=== PATIENT | male | born 1985 | race Caucasian/White ===

== ENCOUNTER 2018-02-20 12:21 | Emergency (ER) | payer SELFPAY ==
--- NOTE | 2018-02-20 12:47 | EDM.PDOCBH ---
ED HPI GENERAL MEDICAL PROBLEM - General Chief Complaint: Drug or Alcohol Abuse Stated Complaint: PSYCH EVAL Time Seen by Provider: 02/20/18 12:40 Source of Information: Reports: Patient History Limitations: Reports: No Limitations - History of Present Illness INITIAL COMMENTS - FREE TEXT/NARRATIVE: Hemant is a pleasant 32yo male presents ambulatory, brought in by his mother for help with alcohol abuse. He wants help for his alcoholism. He drinks a fifth of vodka or whiskey 4-5 days per week for around 10 years. He has been to treatment before, 5 years ago, in [place]. He was inpatient for 32 days, sober for around 2 weeks. He has tried outpatient treatment in the past also, in [place], "just got out of it", on "". He has drank most days since then, last drink at 0430 today, "1 shooter of vodka". He smokes 1/2 pack per day for around 15 years. PMH: right shoulder pain s/p clavicle fx with ORIF 5 years ago. Takes meloxicam with good relief of pain. Also takes occasional melatonin for sleep. NKDA. - Related Data Allergies Allergy/AdvReac Type Severity Reaction Status Date / Time No Known Allergies Allergy Verified 02/20/18 12:29 Home Meds: Home Meds Meloxicam [Mobic] 7.5 mg PO BID PRN 02/20/18 [History] Past Medical History - Past Health History Medical/Surgical History: Denies Medical/Surgical History Musculoskeletal History: Reports: Fracture - Past Surgical History HEENT Surgical History: Reports: Myringotomy w Tube(s), Tonsillectomy Musculoskeletal Surgical History: Reports: ORIF Social & Family History - Family History Family Medical History: Noncontributory - Tobacco Use Smoking Status *Q: Current Every Day Smoker Years of Tobacco use: 15 Packs/Tins Daily: 0.5 - Caffeine Use Caffeine Use: Reports: Energy Drinks - Alcohol Use Days Per Week of Alcohol Use: 4 Number of Drinks Per Day: 4 Total Drinks Per Week: 16 - Recreational Drug Use Recreational Drug Use: No ED ROS GENERAL - Review of Systems Review Of Systems: See Below Constitutional: Reports: No Symptoms HEENT: Reports: No Symptoms Respiratory: Reports: No Symptoms Cardiovascular: Reports: No Symptoms GI/Abdominal: Reports: No Symptoms : Reports: No Symptoms Musculoskeletal: Reports: No Symptoms Skin: Reports: No Symptoms Neurological: Reports: No Symptoms Psychiatric: Reports: No Symptoms ED EXAM, BEHAVIORAL HEALTH - Physical Exam Exam: See Below Exam Limited By: No Limitations General Appearance: Alert, WD/WN, No Apparent Distress Eye Exam: Bilateral Eye: Conjunctival Injection (minimal bialteral), EOMI, PERRL Ears: Normal External Exam Nose: Normal Inspection Throat/Mouth: Normal Inspection, Normal Lips, Normal Teeth, Normal Voice, No Airway Compromise Head: Atraumatic, Normocephalic Neck: Normal Inspection, Supple Respiratory/Chest: No Respiratory Distress, Lungs Clear, Normal Breath Sounds Cardiovascular: Regular Rate, Rhythm, No Edema, No Murmur GI/Abdominal: Normal Bowel Sounds, Soft, Non-Tender (Male) Exam: Deferred Rectal (Males) Exam: Deferred Back Exam: Normal Inspection Extremities: Normal Inspection, Non-Tender Neurological: Alert, Normal Mood/Affect, Oriented x 3 Psychiatric: Alert, Normal Affect, Normal Cognition, Normal Mood, Oriented Skin Exam: Warm, Dry, Intact COURSE, BEHAVIORAL HEALTH COMP - Course Vital Signs: Last Vital Signs Temp 98.5 F 02/20/18 12:26 Pulse 98 02/20/18 12:26 Resp 16 02/20/18 12:26 BP 146/99 H 02/20/18 12:26 Pulse Ox 95 02/20/18 12:26 Orders, Labs, Meds: Laboratory Tests 02/20/18 02/20/18 02/20/18 Range/Units 13:05 13:05 13:24 WBC 10.66 H (4.23-9.07) K/mm3 RBC 5.34 (4.63-6.08) M/mm3 Hgb 16.8 (13.7-17.5) gm/L Hct 48.2 (40.1-51.0) % MCV 90.3 (79.0-92.2) fl MCH 31.5 (25.7-32.2) pg MCHC 34.9 (32.2-35.5) g/dl RDW Std Deviation 45.0 H (35.1-43.9) fL Plt Count 341 H (163-337) K/mm3 MPV 9.3 L (9.4-12.3) fl Neut % (Auto) 74.9 H (34.0-67.9) % Lymph % (Auto) 17.4 L (21.8-53.1) % Weber % (Auto) 6.8 (5.3-12.2) % Eos % (Auto) 0.4 L (0.8-7.0) Baso % (Auto) 0.4 (0.1-1.2) % Neut # (Auto) 7.99 H (1.78-5.38) K/mm3 Lymph # (Auto) 1.86 (1.32-3.57) K/mm3 Weber # (Auto) 0.72 (0.30-0.82) K/mm3 Eos # (Auto) 0.04 (0.04-0.54) K/mm3 Baso # (Auto) 0.04 (0.01-0.08) K/mm3 Sodium (136-145) mEq/L Potassium (3.5-5.1) mEq/L Chloride (98-107) mEq/L Carbon Dioxide (21-32) mEq/L Anion Gap (5-15) BUN (7-18) mg/dL Creatinine (0.7-1.3) mg/dL Est Cr Clr Drug Dosing mL/min Estimated GFR (MDRD) (>60) mL/min BUN/Creatinine Ratio (14-18) Glucose (74-106) mg/dL Calcium (8.5-10.1) mg/dL Magnesium (1.8-2.4) mg/dl Total Bilirubin (0.2-1.0) mg/dL AST (15-37) U/L ALT (16-63) U/L Alkaline Phosphatase (46-116) U/L Total Protein (6.4-8.2) g/dl Albumin (3.4-5.0) g/dl Globulin gm/dL Albumin/Globulin Ratio (1-2) TSH 3rd Generation (0.358-3.74) uIU/mL Urine Color Yellow (Yellow) Urine Appearance Clear (Clear) Urine pH 8.5 H (5.0-8.0) Ur Specific [place] 1.015 (1.005-1.030) Urine Protein Trace H (Negative) Urine Glucose (UA) Negative (Negative) Urine Ketones Negative (Negative) Urine Occult Blood Negative (Negative) Urine Nitrite Negative (Negative) Urine Bilirubin Negative (Negative) Urine Urobilinogen 1.0 (0.2-1.0) Ur Leukocyte Esterase Negative (Negative) Urine RBC Not seen (0-5) /hpf Urine WBC 0-5 (0-5) /hpf Ur Epithelial Cells 0-5 (0-5) /hpf Urine Bacteria Not seen (FEW) /hpf Urine Mucus Not seen (FEW) /hpf Urine Opiates Screen Negative (NEGATIVE) Ur Buprenorphine Scrn Negative (NEGATIVE) Ur Oxycodone Screen Negative (NEGATIVE) Urine Methadone Screen Negative (NEGATIVE) Ur Propoxyphene Screen Negative (NEGATIVE) Ur Barbiturates Screen Negative (NEGATIVE) Ur Tricyclics Screen Negative (NEGATIVE) Ur Phencyclidine Scrn Negative (NEGATIVE) Ur Amphetamine Screen Negative (NEGATIVE) U Methamphetamines Scrn Negative (NEGATIVE) U Benzodiazepines Scrn Negative (NEGATIVE) U Cocaine Metab Screen Negative (NEGATIVE) U Marijuana (THC) Screen Negative (NEGATIVE) Ethyl Alcohol (0.00) gm% 02/20/18 Range/Units 13:24 WBC (4.23-9.07) K/mm3 RBC (4.63-6.08) M/mm3 Hgb (13.7-17.5) gm/L Hct (40.1-51.0) % MCV (79.0-92.2) fl MCH (25.7-32.2) pg MCHC (32.2-35.5) g/dl RDW Std Deviation (35.1-43.9) fL Plt Count (163-337) K/mm3 MPV (9.4-12.3) fl Neut % (Auto) (34.0-67.9) % Lymph % (Auto) (21.8-53.1) % Weber % (Auto) (5.3-12.2) % Eos % (Auto) (0.8-7.0) Baso % (Auto) (0.1-1.2) % Neut # (Auto) (1.78-5.38) K/mm3 Lymph # (Auto) (1.32-3.57) K/mm3 Weber # (Auto) (0.30-0.82) K/mm3 Eos # (Auto) (0.04-0.54) K/mm3 Baso # (Auto) (0.01-0.08) K/mm3 Sodium 140 (136-145) mEq/L Potassium 3.9 (3.5-5.1) mEq/L Chloride 101 (98-107) mEq/L Carbon Dioxide 27 (21-32) mEq/L Anion Gap 15.9 H (5-15) BUN 6 L (7-18) mg/dL Creatinine 0.9 (0.7-1.3) mg/dL Est Cr Clr Drug Dosing 130.53 mL/min Estimated GFR (MDRD) > 60 (>60) mL/min BUN/Creatinine Ratio 6.7 L (14-18) Glucose 101 (74-106) mg/dL Calcium 9.5 (8.5-10.1) mg/dL Magnesium 2.0 (1.8-2.4) mg/dl Total Bilirubin 0.7 (0.2-1.0) mg/dL AST 31 (15-37) U/L ALT 62 (16-63) U/L Alkaline Phosphatase 70 (46-116) U/L Total Protein 8.7 H (6.4-8.2) g/dl Albumin 4.5 (3.4-5.0) g/dl Globulin 4.2 gm/dL Albumin/Globulin Ratio 1.1 (1-2) TSH 3rd Generation 1.017 (0.358-3.74) uIU/mL Urine Color (Yellow) Urine Appearance (Clear) Urine pH (5.0-8.0) Ur Specific [place] (1.005-1.030) Urine Protein (Negative) Urine Glucose (UA) (Negative) Urine Ketones (Negative) Urine Occult Blood (Negative) Urine Nitrite (Negative) Urine Bilirubin (Negative) Urine Urobilinogen (0.2-1.0) Ur Leukocyte Esterase (Negative) Urine RBC (0-5) /hpf Urine WBC (0-5) /hpf Ur Epithelial Cells (0-5) /hpf Urine Bacteria (FEW) /hpf Urine Mucus (FEW) /hpf Urine Opiates Screen (NEGATIVE) Ur Buprenorphine Scrn (NEGATIVE) Ur Oxycodone Screen (NEGATIVE) Urine Methadone Screen (NEGATIVE) Ur Propoxyphene Screen (NEGATIVE) Ur Barbiturates Screen (NEGATIVE) Ur Tricyclics Screen (NEGATIVE) Ur Phencyclidine Scrn (NEGATIVE) Ur Amphetamine Screen (NEGATIVE) U Methamphetamines Scrn (NEGATIVE) U Benzodiazepines Scrn (NEGATIVE) U Cocaine Metab Screen (NEGATIVE) U Marijuana (THC) Screen (NEGATIVE) Ethyl Alcohol 0.21 (0.00) gm% Medical Clearance: 03/05/18 12:33 All labs are stable and essentially WNL for "medical clearance" for entering [facility]. Rx written for librium and ativan in decreasing fashion to help with any withdrawl symptoms. Rx also written for meloxicam to continue while in rehab facility. Patient is discharged from ED with intent that he will report to [facility] for rehabilitation for alcoholism. Departure - Departure Time of Disposition: 15:30 Disposition: Home, Self-Care 01 Condition: Good Clinical Impression: Alcohol abuse - Discharge Information Referrals: PCP,None [Primary Care Provider] - Additional Instructions: Rx for ativan and librium written; see other written DC instructions for further details.
== END 2018-02-20 15:29 | disposition home or self-care (01) ==
LOC: JD.ED 12:21
DX: F10.239 Alcohol dependence with withdrawal, unspecified (principal); F17.210 Nicotine dependence, cigarettes, uncomplicated; Y90.7 Blood alcohol level of 200-239 mg/100 ml
CPT/HCPCS: 36415; 80053; 80306; 81001; 83735; 84443; 85025; 93005; 99284; G0480